=== PATIENT | female | born 1960 | race Caucasian/White ===

== ENCOUNTER 2018-06-23 09:19 | Emergency (ER) | payer MEDICARE ==
[~2018-06-23] VITALS: Ht 175.3 cm; Wt 117.3 kg
[~2018-06-23 09:19] MED LIST: ALPR-624 PO; AMPH12.52 PO; ARIP5TAB4 PO; ATOR40TA PO; CARI350T PO; CYCL-1 PO; ESCI10TA45 PO; FLUC150T5 PO; FURO-150 PO; HYDR-565 PO; IBUP-1984 PO; IBUP-1985 PO; OXYC5CAP PO; PER5325T PO; POTA20TA19 PO
[2018-06-23] MEDS ORDERED: ketorolac trometh inj. 60 MG/2 ML VIAL IM ONE (11:55)
[2018-06-23] MEDS ORDERED: dexamethasone 4mg tablet PO ONE (11:55)
[2018-06-23] MEDS ORDERED: gabapentin 400mg capsule PO ONE (11:55)
[2018-06-23] MEDS ORDERED: IBUP-1986 PO (12:19)
[2018-06-23 12:51] VITALS: BP 122/70
== END 2018-06-23 12:52 | disposition home or self-care (01) ==
LOC: ER 09:19
DX: M54.2 Cervicalgia (principal); I10 Essential (primary) hypertension; G89.29 Other chronic pain; E11.9 Type 2 diabetes mellitus without complications; Z90.49 Acquired absence of other specified parts of digestive tract; Z98.890 Other specified postprocedural states; Z79.899 Other long term (current) drug therapy
CPT/HCPCS: 96372; 99283; J1885; J7030; J8540

== ENCOUNTER 2018-08-30 01:26 | Emergency (ER) | payer MEDICARE, OTHER ==
[~2018-08-30] VITALS: Ht 175.3 cm; Wt 118.2 kg
[~2018-08-30 01:26] MED LIST changes: +HYDR-4353 PO; -HYDR-565 PO; +IBUP-1986 PO
[2018-08-30] MEDS ORDERED: morphine 4 MG/ML inj SYRINge IM ONE (02:40)
[2018-08-30] MEDS ORDERED: ketorolac trometh. 30mg/ml inj. IM ONE (02:40)
[2018-08-30] MEDS ORDERED: ondansetron/PF 4mg/2ml inj IM ONE (02:40)
[2018-08-30 03:09] VITALS: BP 109/61
[2018-08-30] MEDS ORDERED: HYDR-4353 PO (04:31)
[2018-08-30] MEDS ORDERED: IBUP-1986 PO (04:31)
== END 2018-08-30 05:05 | disposition home or self-care (01) ==
LOC: ER 01:27
DX: S30.0XXA Contusion of lower back and pelvis, initial encounter (principal); E66.01 Morbid (severe) obesity due to excess calories; I10 Essential (primary) hypertension; E11.9 Type 2 diabetes mellitus without complications; G89.29 Other chronic pain; F17.200 Nicotine dependence, unspecified, uncomplicated; Z90.49 Acquired absence of other specified parts of digestive tract; Z98.890 Other specified postprocedural states; Z79.899 Other long term (current) drug therapy; W10.9XXA Fall (on) (from) unspecified stairs and steps, initial encounter; Y93.89 Activity, other specified; Y92.89 Other specified places as the place of occurrence of the external cause; Y99.9 Unspecified external cause status
CPT/HCPCS: 72100; 96372; 99284; J1885; J2270; J2405

== ENCOUNTER 2018-10-07 04:51 | Emergency (ER) | payer MEDICARE, OTHER ==
[~2018-10-07] VITALS: Ht 175.3 cm; Wt 118.1 kg
[2018-10-07] MEDS ORDERED: LORazepam 1 MG tablet PO ONE (05:05)
[2018-10-07 05:29] LABS: ALANINE AMINOTRANSFERASE 28 U/L (12-78); ALBUMIN 3.4 G/DL (3.4-5.0); ALBUMIN/GLOBULIN RATIO 0.9 (1.1-1.5); ALKALINE PHOSPHATASE 130 IU/L (46-116); ANION GAP 8 (8-16); ASPARTATE AMINO TRANSFERASE 17 U/L (10-37); BILIRUBIN,TOTAL 0.6 MG/DL (0.1-1.0); BLOOD UREA NITROGEN 11 MG/DL (7-18); BUN/CREATININE RATIO 12.5 (6.6-38.0); CALCIUM 9.3 MG/DL (8.5-10.1); CHLORIDE 102 MMOL/L (99-107); CREATININE 0.88 MG/DL (0.40-0.90); GLUCOSE 322 MG/DL (70-104); SODIUM 138 MMOL/L (135-145); TOTAL CARBON DIOXIDE 27.7 MMOL/L (24-32); eGFR 66 ML/MIN
[2018-10-07 05:36] LABS: POTASSIUM 4.2 MMOL/L (3.5-5.1)
[2018-10-07] MEDS ORDERED: METH4TAB81 PO (05:51)
[2018-10-07] MEDS ORDERED: CEPH500C5 PO (05:51)
[2018-10-07] MEDS ORDERED: SULF1TAB49 PO (05:51)
[2018-10-07] MEDS ORDERED: HYDR50TA65 PO (05:51)
[2018-10-07 05:55] LABS: BASOPHILS # (AUTO) 0.1 X10'3 (0-0.2); EOSINOPHILS # (AUTO) 0.1 X10'3 (0-0.9); EOSINOPHILS % (AUTO) 0.6 % (0-6); HEMATOCRIT 46.9 % (35.0-45.0); HEMOGLOBIN 15.3 g/dl (12.0-16.0); LYMPHOCYTES # (AUTO) 1.5 X10'3 (1.1-4.8); LYMPHOCYTES % (AUTO) 13.6 % (21-51); MEAN CORPUSCULAR HEMOGLOBIN 27.6 PG (27.0-31.0); MEAN CORPUSCULAR HGB CONC 32.7 % (33.0-36.5); MEAN CORPUSCULAR VOLUME 84.3 FL (78-98); MEAN PLATELET VOLUME 8.1 FL (7.4-10.4); MONOCYTES % (AUTO) 9.3 % (2-12); NEUTROPHILS # (AUTO) 8.3 X10'3 (1.8-7.7); NEUTROPHILS % (AUTO) 75.5 % (42-75); PLATELET COUNT 243 X10'3 (140-440); RED BLOOD COUNT 5.56 X10'6 (4.20-5.60); RED CELL DISTRIBUTION WIDTH 13.9 % (11.5-14.5)
[2018-10-07 06:07] VITALS: BP 134/54
== END 2018-10-07 06:11 | disposition home or self-care (01) ==
LOC: ER 04:52
DX: F41.9 Anxiety disorder, unspecified (principal); L40.8 Other psoriasis; L03.116 Cellulitis of left lower limb; L03.115 Cellulitis of right lower limb; I10 Essential (primary) hypertension; E11.9 Type 2 diabetes mellitus without complications; G89.29 Other chronic pain; F17.200 Nicotine dependence, unspecified, uncomplicated; Z90.49 Acquired absence of other specified parts of digestive tract; Z98.890 Other specified postprocedural states; Z79.899 Other long term (current) drug therapy
CPT/HCPCS: 36415; 71045; 80053; 84484; 85025; 93005; 99284

== ENCOUNTER 2018-12-20 17:18 | Emergency (ER) | payer MEDICARE, OTHER ==
[~2018-12-20] VITALS: Ht 175.3 cm; Wt 119.5 kg
[~2018-12-20 17:18] MED LIST changes: +CEPH500C5 PO; +HYDR50TA65 PO; +METH4TAB81 PO
[2018-12-20 17:25] VITALS: BP 118/90
[2018-12-20] MEDS ORDERED: cephalexin 500mg capsule PO ONE (19:25)
[2018-12-20] MEDS ORDERED: CEPH250T PO (19:25)
[2018-12-20] MEDS ORDERED: silver sulfadiazine cream 50gm TP SCH (19:38)
[2018-12-21] MEDS ORDERED: silver sulfadiazine cream 400gm jar TP SCH (08:00)
== END 2018-12-20 19:50 | disposition home or self-care (01) ==
LOC: ER 17:18
DX: T23.232A Burn of second degree of multiple left fingers (nail), not including thumb, initial encounter (principal); T31.0 Burns involving less than 10% of body surface; L03.012 Cellulitis of left finger; I10 Essential (primary) hypertension; G89.29 Other chronic pain; F15.90 Other stimulant use, unspecified, uncomplicated; Z90.49 Acquired absence of other specified parts of digestive tract; Z98.890 Other specified postprocedural states; Z79.2 Long term (current) use of antibiotics; Z79.899 Other long term (current) drug therapy; X10.2XXA Contact with fats and cooking oils, initial encounter; Y93.G3 Activity, cooking and baking; Y92.89 Other specified places as the place of occurrence of the external cause; Y99.8 Other external cause status
CPT/HCPCS: 16020; 93005; 99284

== ENCOUNTER 2019-03-03 20:35 | Emergency (ER) | payer MEDICARE, MEDICAID ==
[~2019-03-03] VITALS: Ht 160 cm; Wt 120.0 kg
[~2019-03-03 20:35] MED LIST changes: +ACET-2119 PO
[2019-03-03] MEDS ORDERED: HYDROcodone/acetaminophen 5mg/325mg tablet PO ONE (21:50)
[2019-03-03] MEDS ORDERED: ketorolac tromethamine 15mg/ml inj. IM ONE (21:50)
[2019-03-03 23:41] VITALS: BP 160/84
[2019-03-04] MEDS ORDERED: HYDR-4384 PO (00:11)
[2019-03-04] MEDS ORDERED: HYDROcodone/acetaminophen 5mg/325mg tablet PO ONE (00:20)
== END 2019-03-04 00:33 | disposition home or self-care (01) ==
LOC: ER 20:36
DX: S22.32XA Fracture of one rib, left side, initial encounter for closed fracture (principal); S27.1XXA Traumatic hemothorax, initial encounter; I10 Essential (primary) hypertension; G89.29 Other chronic pain; F15.90 Other stimulant use, unspecified, uncomplicated; Z90.49 Acquired absence of other specified parts of digestive tract; Z98.890 Other specified postprocedural states; Z79.899 Other long term (current) drug therapy; W18.49XA Other slipping, tripping and stumbling without falling, initial encounter; Y93.89 Activity, other specified; Y92.89 Other specified places as the place of occurrence of the external cause; Y99.9 Unspecified external cause status
CPT/HCPCS: 71250; 96372; 99284; J1885

== ENCOUNTER 2019-03-08 02:40 | Observation (INO) | payer MEDICARE, MEDICAID ==
[~2019-03-08] VITALS: Ht 175.3 cm; Wt 118.2 kg
[~2019-03-08 02:40] MED LIST changes: +HYDR-4384 PO
[2019-03-08] MEDS ORDERED: acetaminophen 325mg tablet PO ONE ×2 (03:05)
[2019-03-08] MEDS ORDERED: HYDROmorphone 1 mg/ml syringe IM ONE (03:05)
[2019-03-08] MEDS ORDERED: LIDOcaine 5% patch TP ONE (03:05)
[2019-03-08] MEDS ORDERED: ondansetron 4mg rapidly disintigrating tab PO ONE (03:05)
--- NOTE | 2019-03-08 04:00 | NUR ---
PT UPDATED ON PLAN OF CARE. SHE CONSENTS TO ADMISSION. IV WILL BE STARTED AND LABS DRAWN.
[2019-03-08] MEDS ORDERED: METH750T3 PO (04:30)
[2019-03-08] MEDS ORDERED: ALBU8HFA PO (04:31)
[2019-03-08] MEDS ORDERED: HYDR-3686 PO (04:32)
[2019-03-08] MEDS ORDERED: CYCL-1 PO (04:32)
[2019-03-08 04:35] LABS: BASOPHILS # (AUTO) 0.1 X10'3 (0-0.2); BASOPHILS % (AUTO) 0.7 % (0-1); EOSINOPHILS # (AUTO) 0.2 X10'3 (0-0.9); EOSINOPHILS % (AUTO) 2.3 % (0-6); HEMATOCRIT 39.3 % (35.0-45.0); HEMOGLOBIN 13.1 g/dl (12.0-16.0); LYMPHOCYTES # (AUTO) 1.6 X10'3 (1.1-4.8); LYMPHOCYTES % (AUTO) 19.2 % (21-51); MEAN CORPUSCULAR HEMOGLOBIN 27.5 PG (27.0-31.0); MEAN CORPUSCULAR HGB CONC 33.2 g/dL (33.0-36.5); MEAN CORPUSCULAR VOLUME 82.8 FL (78-98); MEAN PLATELET VOLUME 7.6 FL (7.4-10.4); MONOCYTES # (AUTO) 0.7 X10'3 (0-0.9); MONOCYTES % (AUTO) 8.9 % (2-12); NEUTROPHILS # (AUTO) 5.6 X10'3 (1.8-7.7); NEUTROPHILS % (AUTO) 68.9 % (42-75); PLATELET COUNT 235 X10'3 (140-440); RED BLOOD COUNT 4.74 X10'6 (4.20-5.60); RED CELL DISTRIBUTION WIDTH 14.2 % (11.5-14.5); WHITE BLOOD COUNT 8.1 X10'3 (4.5-11.0)
[2019-03-08 04:37] LABS: ALANINE AMINOTRANSFERASE 24 U/L (12-78); ALBUMIN/GLOBULIN RATIO 0.9 (1.1-1.5); ALKALINE PHOSPHATASE 140 IU/L (46-116); ANION GAP 5 (8-16); ASPARTATE AMINO TRANSFERASE 15 U/L (10-37); BILIRUBIN,TOTAL 0.2 MG/DL (0.1-1.0); BLOOD UREA NITROGEN 10 MG/DL (7-18); CALCIUM 8.8 MG/DL (8.5-10.1); CHLORIDE 106 MMOL/L (99-107); CREATININE 0.77 MG/DL (0.40-0.90); GLUCOSE 166 MG/DL (70-104); SODIUM 141 MMOL/L (135-145); TOTAL CARBON DIOXIDE 30.3 MMOL/L (24-32); TOTAL PROTEIN 6.4 G/DL (6.4-8.2); eGFR 77 ML/MIN
[2019-03-08 04:42] LABS: POTASSIUM 3.9 MMOL/L (3.5-5.1)
[2019-03-08 04:44] LABS: INR 1.1 INR
[2019-03-08] MEDS ORDERED: morphine 2 MG/ML inj. syringe IV PRN (05:00)
[2019-03-08] MEDS ORDERED: HYDROcodone/acetaminophen 5mg/325mg tablet PO PRN (05:00)
[2019-03-08] MEDS ORDERED: magnesium 2GM in 50ml NS 50 ML IV PRN (05:00)
[2019-03-08] MEDS ORDERED: magnesium Cl slow-release 64mg tablet PO PRN (05:00)
[2019-03-08] MEDS ORDERED: potassium Cl 20 mEq SR tablet PO PRN ×2 (05:00)
[2019-03-08] MEDS ORDERED: acetaminophen 325mg tablet PO PRN ×2 (05:00)
[2019-03-08] MEDS ORDERED: normal saline 1000ml 1,000 ML IV SCH (05:00)
[2019-03-08] MEDS ORDERED: ondansetron/PF 4mg/2ml inj IV PRN (05:00)
[2019-03-08] MEDS ORDERED: potassium Cl 40MEQ/NS 500ml 500 ML IV PRN ×2 (05:00)
[2019-03-08] MEDS ORDERED: magnesium 4gm in 100ml NS 100 ML IV PRN (05:00)
--- NOTE | 2019-03-08 06:08 | NUR ---
PT HAS BEEN RESTING. NO DISTRESS NOTED. WILL CONTINUE TO MONITOR.
[2019-03-08] MEDS ORDERED: cyclobenzaprine 10mg tablet PO PRN (07:15)
[2019-03-08] MEDS ORDERED: albuterol 2.5 MG/3 ML nebule NEB PRN (07:25)
[2019-03-08] MEDS: AMPHET PO SCH (08:00)
[2019-03-08] MEDS ORDERED: METHOCARBAMOL PO SCH (08:00)
[2019-03-08] MEDS: AMPHET ASP PO SCH (08:00)
[2019-03-08] MEDS: D AMPHET PO SCH (08:00)
[2019-03-08] MEDS: docusate sod 100mg capsule PO SCH ×2 (08:18→20:22)
[2019-03-08] MEDS: ibuprofen 200mg tablet PO SCH ×2 (08:18→16:00)
[2019-03-08] MEDS: ALPRAZolam 0.5mg tablet PO SCH ×3 (08:19→20:22)
[2019-03-08] MEDS: K and/or MAG REPLACEMENT MC SCH (08:24)
[2019-03-08 08:34] VITALS: BP 144/79
[2019-03-08 10:00] VITALS: BP 154/89
[2019-03-08] MEDS ORDERED: oxyCODONE IR 5mg (immed. release) tablet PO PRN (10:20)
--- NOTE | 2019-03-08 15:06 | NUR ---
PT DROWSY BUT AROUSABLE AFTER GIVING THE OXY IR, STATED "SHE HASN'T SLEPT SINCE THIS HAS HAPPENED" VISITORS AT BEDSIDE.
[2019-03-08 18:00] VITALS: BP 151/71
[2019-03-08] MEDS ORDERED: famotidine 20mg tablet PO SCH (21:00)
[2019-03-08 22:00] VITALS: BP 145/61
[2019-03-08] MEDS: oxyCODONE IR 5mg (immed. release) tablet PO PRN (22:10)
[2019-03-09] MEDS: oxyCODONE IR 5mg (immed. release) tablet PO PRN (04:41)
[2019-03-09 06:00] VITALS: BP 150/82
[2019-03-09 06:28] LABS: BASOPHILS # (AUTO) 0.1 X10'3 (0-0.2); EOSINOPHILS # (AUTO) 0.2 X10'3 (0-0.9); HEMATOCRIT 40.8 % (35.0-45.0); HEMOGLOBIN 13.6 g/dl (12.0-16.0); LYMPHOCYTES # (AUTO) 1.5 X10'3 (1.1-4.8); LYMPHOCYTES % (AUTO) 15.7 % (21-51); MEAN CORPUSCULAR HEMOGLOBIN 27.5 PG (27.0-31.0); MEAN CORPUSCULAR HGB CONC 33.2 g/dL (33.0-36.5); MEAN CORPUSCULAR VOLUME 82.9 FL (78-98); MEAN PLATELET VOLUME 7.4 FL (7.4-10.4); MONOCYTES # (AUTO) 0.7 X10'3 (0-0.9); MONOCYTES % (AUTO) 7.7 % (2-12); NEUTROPHILS # (AUTO) 6.9 X10'3 (1.8-7.7); NEUTROPHILS % (AUTO) 73.6 % (42-75); PLATELET COUNT 238 X10'3 (140-440); RED BLOOD COUNT 4.93 X10'6 (4.20-5.60); RED CELL DISTRIBUTION WIDTH 14.1 % (11.5-14.5); WHITE BLOOD COUNT 9.4 X10'3 (4.5-11.0)
[2019-03-09 06:36] LABS: ALBUMIN 2.9 G/DL (3.4-5.0); ANION GAP 3 (8-16); BLOOD UREA NITROGEN 9 MG/DL (7-18); BUN/CREATININE RATIO 13.6 (6.6-38.0); CALCIUM 8.4 MG/DL (8.5-10.1); CHLORIDE 105 MMOL/L (99-107); CREATININE 0.66 MG/DL (0.40-0.90); GLUCOSE 174 MG/DL (70-104); MAGNESIUM 1.8 MG/DL (1.5-2.4); POTASSIUM 3.8 MMOL/L (3.5-5.1); SODIUM 138 MMOL/L (135-145); TOTAL CARBON DIOXIDE 29.8 MMOL/L (24-32); eGFR > 90 ML/MIN
--- NOTE | 2019-03-09 06:42 | NUR ---
Problems reprioritized. Patient report given, questions answered & plan of care reviewed with jose angel Zhong.
[2019-03-09] MEDS: K and/or MAG REPLACEMENT MC SCH (07:33)
[2019-03-09] MEDS: AMPHET ASP PO SCH (08:00)
[2019-03-09] MEDS: D AMPHET PO SCH (08:00)
[2019-03-09] MEDS: AMPHET PO SCH (08:00)
[2019-03-09] MEDS: ALPRAZolam 0.5mg tablet PO SCH ×2 (08:28→14:34)
[2019-03-09] MEDS: ibuprofen 200mg tablet PO SCH ×3 (08:28→16:48)
[2019-03-09] MEDS: docusate sod 100mg capsule PO SCH (08:28)
[2019-03-09] MEDS ORDERED: OXYC-658 PO (16:14)
--- NOTE | 2019-03-09 17:30 | NUR ---
Pt went AMA/Pt spouse supported pt going AMA. Pt educated on risks going AMA. Pt unable to ambulate independently, bilateral weakness upper & lower extremities. pt drowsy most of the day, unstable using walker. Falling asleep with cups or bottles of soda/dropping. Able to arouse by name. Pt shouting explenetives , insisting on leaving, disruptive to pts in other rooms. pt did not sign AMA documentation. made aware.
== END 2019-03-09 17:25 | disposition left against medical advice (07) ==
LOC: ER 02:42 → ORTHO 4S 07:35
PROVIDERS: ADMIT Internal Medicine; ATTEND Family Medicine
DX: S22.42XA Multiple fractures of ribs, left side, initial encounter for closed fracture (principal); S27.1XXA Traumatic hemothorax, initial encounter; J98.11 Atelectasis; L40.9 Psoriasis, unspecified; F31.9 Bipolar disorder, unspecified; I10 Essential (primary) hypertension; G89.29 Other chronic pain; W18.30XA Fall on same level, unspecified, initial encounter; Y93.89 Activity, other specified; Y99.8 Other external cause status; Y92.89 Other specified places as the place of occurrence of the external cause; Z90.49 Acquired absence of other specified parts of digestive tract
CPT/HCPCS: 36415; 71045; 71046; 80048; 80053; 83735; 85025; 85610; 87070; 94760; 96372; 97116; 97161; 97530; G0378; J1170; J7030

== ENCOUNTER 2019-08-28 08:07 | Inpatient (IN) | payer MEDICAID, MEDICARE ==
[~2019-08-28] VITALS: Ht 175.3 cm; Wt 112.4 kg
[2019-08-28] VITALS (10 sets, daily range): BP systolic 119–151; BP diastolic 49–69
[~2019-08-28 08:07] MED LIST changes: -ACET-2119 PO; +ALBU8HFA PO; -AMPH12.52 PO; -ARIP5TAB4 PO; -ATOR40TA PO; -CARI350T PO; -CEPH500C5 PO; -ESCI10TA45 PO; -FLUC150T5 PO; -FURO-150 PO; +HYDR-3686 PO; -HYDR-4353 PO; -HYDR-4384 PO; -HYDR50TA65 PO; -IBUP-1984 PO; -IBUP-1986 PO; -METH4TAB81 PO; +METH750T3 PO; +OXYC-658 PO; -OXYC5CAP PO; -PER5325T PO; -POTA20TA19 PO
[2019-08-28] MEDS ORDERED: normal saline 1000ML IV soln IV ONE (08:45)
--- NOTE | 2019-08-28 08:50 | NUR ---
ATTEMPTED TO START PIV UNSUCCESSFUL. PATIENT MAY NEED US GUIDED IV OR PICC LINE. ER MD NOTIFIED OF DIFFICULTY STARTING IV LINE.
[2019-08-28] MEDS ORDERED: heparin 25,000 UNIT/250ml bag 250 ML IV SCH (08:58)
[2019-08-28] MEDS ORDERED: heparin 10,000 units/1 ML INJ IV ONE ×2 (09:00→09:05)
[2019-08-28] MEDS ORDERED: heparin 10,000 units/1 ML INJ IV PRN (09:00)
[2019-08-28 09:16] LABS: BASOPHILS # (AUTO) 0.1 X10'3 (0-0.2); BASOPHILS % (AUTO) 0.9 % (0-1); EOSINOPHILS # (AUTO) 0.1 X10'3 (0-0.9); EOSINOPHILS % (AUTO) 1.1 % (0-6); HEMATOCRIT 46.9 % (35.0-45.0); HEMOGLOBIN 15.4 g/dl (12.0-16.0); LYMPHOCYTES # (AUTO) 1.6 X10'3 (1.1-4.8); LYMPHOCYTES % (AUTO) 20.5 % (21-51); MEAN CORPUSCULAR HEMOGLOBIN 27.8 PG (27.0-31.0); MEAN CORPUSCULAR HGB CONC 32.9 g/dL (33.0-36.5); MEAN CORPUSCULAR VOLUME 84.5 FL (78-98); MEAN PLATELET VOLUME 7.8 FL (7.4-10.4); MONOCYTES # (AUTO) 0.5 X10'3 (0-0.9); MONOCYTES % (AUTO) 6.5 % (2-12); NEUTROPHILS # (AUTO) 5.5 X10'3 (1.8-7.7); PLATELET COUNT 255 X10'3 (140-440); RED BLOOD COUNT 5.55 X10'6 (4.20-5.60); RED CELL DISTRIBUTION WIDTH 13.9 % (11.5-14.5); WHITE BLOOD COUNT 7.8 X10'3 (4.5-11.0)
[2019-08-28 09:28] LABS: PARTIAL THROMBOPLASTIN TIME 25 SECONDS (22-32)
[2019-08-28 09:32] LABS: ALANINE AMINOTRANSFERASE 66 U/L (12-78); ALBUMIN 4.1 G/DL (3.4-5.0); ALKALINE PHOSPHATASE 150 IU/L (46-116); ANION GAP 5 (8-16); ASPARTATE AMINO TRANSFERASE 49 U/L (10-37); BILIRUBIN,TOTAL 0.8 MG/DL (0.1-1.0); BLOOD UREA NITROGEN 13 MG/DL (7-18); BUN/CREATININE RATIO 16.3 (6.6-38.0); CALCIUM 9.4 MG/DL (8.5-10.1); CHLORIDE 101 MMOL/L (99-107); GLUCOSE 229 MG/DL (70-104); POTASSIUM 4.2 MMOL/L (3.5-5.1); SODIUM 139 MMOL/L (135-145); TOTAL CARBON DIOXIDE 32.6 MMOL/L (24-32); TOTAL PROTEIN 8.4 G/DL (6.4-8.2); eGFR 73 ML/MIN
[2019-08-28 09:41] LABS: MAGNESIUM 1.9 MG/DL (1.5-2.4); TROPONIN I < 0.04 NG/ML (0.0-0.05)
[2019-08-28] MEDS ORDERED: CefTRIAXone 2gm/D5W 50ml 50 ML IV ONE (09:55)
--- NOTE | 2019-08-28 10:08 | NUR ---
PICC RN IN ROOM TO START IV, AWARE OF NO ACCESS
--- NOTE | 2019-08-28 10:53 | NUR ---
MD BONILLA IN ROOM TO ASSESS ALOC: PER MD PATIENT WAS TALKING TO HIM EARLIER PATIENT DID NOT MOVE OR FLICH TO DEEP NAILBED PRESSURE PATIENT ONLY MOVED TO DEEP STERNAL RUB, EYES BRIEFLY FLUTTERED OPEN, I HELD EYES OPEN NO STARTLE REFLEX NOTED PICC RN UNABLE TO PLACE LINE
--- NOTE | 2019-08-28 10:58 | NUR ---
DR WALL AWARE NO IV ACCESS AND NO MEDS GIVEN
[2019-08-28] MEDS ORDERED: naloxone 2mg/2ml inj IV STA (11:16)
[2019-08-28] MEDS ORDERED: rocuronium br inj. 100 MG in normal saline 100ml IV soln 90 ML IV PRN ×2 (11:35→11:55)
[2019-08-28] MEDS ORDERED: etomidate 2mg/ml inj. IV ONE (11:40)
[2019-08-28] MEDS ORDERED: rocuronium 10mg/ml inj IV ONE ×2 (11:45→12:00)
[2019-08-28] MEDS ORDERED: propofol 1000mg/100ml bottle 100 ML IV ONE (11:54)
[2019-08-28] MEDS ORDERED: etomidate 2mg/ml inj. ONE (12:00)
[2019-08-28] MEDS ORDERED: sod chloride 0.9% 10ml flush syringe IV ONE (12:00)
--- NOTE | 2019-08-28 12:07 | NUR ---
2 LITERS BOLUS INFUSING TO BRIAN THUMB. PROPOFOLOL 15MCG/KG/MIN RUNNING
[2019-08-28 12:11] LABS: URINE HCG NEGATIVE (NEG)
[2019-08-28] MEDS: propofol 1000mg/100ml bottle 100 ML IV SCH ×3 (12:11→22:30)
[2019-08-28 12:13] LABS: CLARITY,URINE CLEAR (Clear); COLOR,URINE YELLOW (Yellow); GLUCOSE, URINE 500 mg/dl (Neg); KETONES,URINE NEGATIVE (Neg); LEUKOCYTE ESTERASE ,URINE NEGATIVE (Neg); NITRITES, URINE NEGATIVE (Neg); OCCULT BLOOD,URINE NEGATIVE (Neg); PROTEIN,URINE NEGATIVE (Neg); UA COLLECTION TYPE FOLEY CATH; UROBILINOGEN,URINE 0.2 E.U/dL (0.2-1.0)
--- NOTE | 2019-08-28 12:18 | NUR ---
PATIENT TO CT SCAN, OETT TUBE AT TEETH 25 CM, PROPOFOL AT 15MCG/KG/MIN TO LEFT THUMB IV: DR WALL AWARE IT IS RUNNING THRU A 22 GAUGE PIV IN THE THUMB. SR, LUNGS CL ON 50 % FIO2, SR, FC TO GRAVITY PATIENT TO HEAD CT ON [place] ON MONITOR WITH RESPIRATORY THERAPY, MYSELF AND WEB CONTENT PRODUCER
[2019-08-28] MEDS ORDERED: acetaminophen 325mg tablet PO PRN ×2 (12:20)
[2019-08-28] MEDS ORDERED: ipratropium/albuterol 3ml nebule NEB PRN (12:20)
[2019-08-28] MEDS ORDERED: metoclopramide 5 mg/ml inj IV PRN (12:20)
[2019-08-28] MEDS ORDERED: potassium Cl 20 mEq SR tablet PO PRN (12:20)
[2019-08-28] MEDS ORDERED: magnesium hydroxide 30ml (MOM) UD suspension PO PRN (12:20)
[2019-08-28] MEDS ORDERED: morphine 2 MG/ML inj. syringe IV PRN (12:20)
[2019-08-28] MEDS ORDERED: morphine 4 MG/ML inj SYRINge IV PRN (12:20)
[2019-08-28] MEDS ORDERED: ondansetron/PF 4mg/2ml inj IV PRN (12:20)
[2019-08-28 13:15] LABS: ABG BASE EXCESS 1.1 mmol/L (-2.0-3.0); ABG HCO3 29.1 mmol/L (22.0-26.0); ABG OXYGEN SATURATION 98.3 % (95-98); ABG PCO2 (T) 61.1 mmHg (35.0-45.0); ABG PH (T) 7.296 (7.350-7.450); ABG PO2 (T) 139.3 mmHg (83-108); ALLEN'S TEST Positive; FCOHb 3.9 % (0.5-1.5); FMetHb 0.2 % (0.3-1.12); FO2Hb 94.3 % (94-100); MINUTE VOLUME 7 L/min; PEEP 5 cm H2O; RESPIRATORY RATE 12 b/min; TIDAL VOLUME 500 mL; TOTAL HEMOGLOBIN 14.6 G/dl (12.0-16.0)
[2019-08-28 13:34] LABS: URINE AMPHETAMINE SCREEN POSITIVE (Neg); URINE BARBITUATE SCREEN NEGATIVE (Neg); URINE BENZODIAZEPINES SCREEN NEGATIVE (Neg); URINE CANNABINOID SCREEN NEGATIVE (Neg); URINE COCAINE SCREEN NEGATIVE (Neg); URINE METHADONE SCREEN NEGATIVE (Neg); URINE OPIATE SCREEN POSITIVE (Neg); URINE PHENCYCLIDINE SCREEN NEGATIVE (Neg)
--- NOTE | 2019-08-28 14:07 | NUR ---
again asl dr guillermo to place a central line; dr guillermo is aaware that the only iv access for this patient is a 22 gauge piv in each thumb. dr guillermo is aware that propofol is running thru piv in thumb. dr guillermo wants to do LP now, not CL
--- NOTE | 2019-08-28 14:32 | NUR ---
DR BONILLA UNABLE TO PALPATE SPINE: NO LUMBAR PUNCTURE PERFORMED. DR WALL WOULD LIKE ICU TO PLACE CENTRAL LINE
--- NOTE | 2019-08-28 14:45 | NUR ---
CALLED RESPIRATORY BILLY TO COME TO ASSIST PATIENT TO CT SCAN AND UP TO ICU: SHE IS UNABLE TO COME, RESPIRATORY PAGED
--- NOTE | 2019-08-28 14:59 | NUR ---
DR WALL ASKED IF HE WANTED A NON CONTRAST CT. DR WALL WOULD LIKE A NON CONTRAST CHEST CT PER RADIOLOGIST REQUEST. ABOUT 1300 DR WALL DISCUSSED OBTAINING A CTA DUE TO CONCERNS OVER A WIDENING MEDIASTINUM
--- NOTE | 2019-08-28 15:01 | NUR ---
PHONE REPORT TO MARINO AGUDELO ICU. PATIENT GOING ON [facility]UR[employer] AIR, WITH RESPIRATORY THERAPY AND MYSELF ON MONITOR TO ROOM 2008A
--- NOTE | 2019-08-28 15:04 | NUR ---
RN MARINO AWARE NO MEDICATION RECONCILIATION DONE OR BELONGINGS LIST
--- NOTE | 2019-08-28 15:46 | NUR ---
ASKED DR STEARNS IF HE WAS GOING TO START A CENTRAL LINE AND HE SAID "NO". DR STEARNS IS AWARE THAT PATIENT ONLY HAS 22 GAUGE IV IN EACH THUMB.
--- NOTE | 2019-08-28 15:48 | NUR ---
[place] RN AND RESPIRATORY THERAPY TO CT SCAN OF CHEST NON CONTRAST AND THEN TO ICU 2007. PATIENT WITH OG TUBE CLAMPED, OEET AT 25 CM: MARINO, HYDRAMATIC MECHANIC IS AWARE THAT OETT NEEDS TO BE PULLED BACK. FC TO GRAVITY. RIGHT AND LEFT THUMB PIVS WITH PROPOFOL AT 25 MCG/KG/MIN.
[2019-08-28] MEDS: K, MAG and/or Phos replacement - Verify level? MC SCH (18:10)
[2019-08-28] MEDS: normal saline 1000ml 1,000 ML IV SCH (18:12)
[2019-08-28] MEDS ORDERED: glucagon, human recombinant 1mg kit SUBCUT PRN (20:05)
[2019-08-28] MEDS ORDERED: dextrose 50%-water 50ml dispensing syringe IV PRN ×2 (20:05)
[2019-08-28] MEDS ORDERED: dextrose ORAL solution 15 GM/59 ML bottle PO PRN ×2 (20:05)
[2019-08-28] MEDS: insulin Lispro (HumaLOG) vial - multi-dose SQ SCH (22:34)
[2019-08-28] MEDS: insulin glargine (Lantus) pen - multi-dose SQ SCH (22:35)
[2019-08-29] VITALS (24 sets, daily range): BP systolic 99–146; BP diastolic 39–71
[2019-08-29] MEDS: propofol 1000mg/100ml bottle 100 ML IV SCH ×2 (00:55→05:00)
[2019-08-29] MEDS: normal saline 1000ml 1,000 ML IV SCH ×2 (01:39→04:59)
[2019-08-29] MEDS: insulin Lispro (HumaLOG) vial - multi-dose SQ SCH ×3 (02:51→15:04)
[2019-08-29 03:45] LABS: ABG BASE EXCESS 2.2 mmol/L (-2.0-3.0); ABG HCO3 26.8 mmol/L (22.0-26.0); ABG OXYGEN SATURATION 95.9 % (95-98); ABG PCO2 (T) 41.9 mmHg (35.0-45.0); ABG PH (T) 7.425 (7.350-7.450); ABG PO2 (T) 75.9 mmHg (83-108); FMetHb 0.1 % (0.3-1.12); FO2Hb 94.8 % (94-100); MINUTE VOLUME 8 L/min; PATIENT TEMPERATURE 37.1; PEEP 5 cm H2O; RESPIRATORY RATE 16 b/min; RESPIRATORY RATE (OBSERVED) 17 b/min; TIDAL VOLUME 500 mL; TOTAL HEMOGLOBIN 14.6 G/dl (12.0-16.0)
[2019-08-29 05:10] LABS: BASOPHILS % (AUTO) 0.5 % (0-1); EOSINOPHILS # (AUTO) 0.1 X10'3 (0-0.9); EOSINOPHILS % (AUTO) 1.2 % (0-6); HEMATOCRIT 45.1 % (35.0-45.0); LYMPHOCYTES # (AUTO) 1.6 X10'3 (1.1-4.8); LYMPHOCYTES % (AUTO) 19.9 % (21-51); MEAN CORPUSCULAR HGB CONC 33.2 g/dL (33.0-36.5); MEAN CORPUSCULAR VOLUME 84.5 FL (78-98); MEAN PLATELET VOLUME 7.9 FL (7.4-10.4); MONOCYTES # (AUTO) 0.7 X10'3 (0-0.9); MONOCYTES % (AUTO) 8.4 % (2-12); NEUTROPHILS # (AUTO) 5.8 X10'3 (1.8-7.7); PLATELET COUNT 220 X10'3 (140-440); RED BLOOD COUNT 5.34 X10'6 (4.20-5.60); RED CELL DISTRIBUTION WIDTH 13.8 % (11.5-14.5); WHITE BLOOD COUNT 8.2 X10'3 (4.5-11.0)
[2019-08-29 05:22] LABS: PARTIAL THROMBOPLASTIN TIME 24 SECONDS (22-32)
--- NOTE | 2019-08-29 06:28 | NUR ---
Problems reprioritized. Patient report given, questions answered & plan of care reviewed with Belkys AGUDELO.
[2019-08-29 06:53] LABS: ALANINE AMINOTRANSFERASE 66 U/L (12-78); ALBUMIN 3.1 G/DL (3.4-5.0); ANION GAP 8 (8-16); BILIRUBIN,TOTAL 0.6 MG/DL (0.1-1.0); BLOOD UREA NITROGEN 9 MG/DL (7-18); BUN/CREATININE RATIO 12.2 (6.6-38.0); CALCIUM 8.5 MG/DL (8.5-10.1); CHLORIDE 107 MMOL/L (99-107); CREATININE 0.74 MG/DL (0.40-0.90); GLUCOSE 167 MG/DL (70-104); MAGNESIUM 1.8 MG/DL (1.5-2.4); PHOSPHORUS 2.1 MG/DL (2.3-4.5); POTASSIUM 3.6 MMOL/L (3.5-5.1); SODIUM 142 MMOL/L (135-145); TOTAL CARBON DIOXIDE 26.9 MMOL/L (24-32); TOTAL PROTEIN 6.3 G/DL (6.4-8.2); eGFR 80 ML/MIN
[2019-08-29 07:08] LABS: ALKALINE PHOSPHATASE 124 IU/L (46-116); ASPARTATE AMINO TRANSFERASE 43 U/L (10-37)
[2019-08-29] MEDS ORDERED: FENTANYL-0.9 % NACL/PF 100 ML IV PRN (07:25)
[2019-08-29] MEDS: pantoprazole 40 MG vial IV SCH (07:42)
[2019-08-29] MEDS: K, MAG and/or Phos replacement - Verify level? MC SCH (08:03)
[2019-08-29] MEDS: enoxaparin 40mg/0.4ml syringe SUBCUT SCH (09:09)
[2019-08-29 10:02] LABS: GASTRIC OCCULT BLOOD POSITIVE (Neg)
--- NOTE | 2019-08-29 11:45 | NUR ---
Initial: Pt admit for progressive obtundation and respiratory failure. Per H&P pt with left tibial abscess. Per physical assessment wound is KIRBY and scabbed over. Wound care has been consulted, pending further skin assessment. Pt with hx illicit drug abuse and DM per H&P however no hx of DM listed in PMH and no A1c lab current or past visits. BG 146-229 this since admit, on glycemic protocol. Pt intubated with potential extubation today per MD notes. TF recommendations below for if prolonged intubation and to receive nutrition support. No documented LBM. Pt with hx IBS and documented with hypoactive bowel sounds per physical assessment, to receive routine Relistor with PRN Reglan and MoM. Will continue to follow closely. Recommendations: 1) If prolonged intubation and to receive TF, continuous TF using Vital High Protein with goal rate of 75 mL/hr 2) If above, Prealbumin q /; daily weights 3) Routine bowel care 4) Upon extubation advance diet to regular given no documented hx of DM; CHO controlled diet would be appropriate for BG control if pt continues with elevated BG Addendum: 08/29/19 at [address] Amended: Links added.
--- NOTE | 2019-08-29 17:28 | NUR ---
positive blood culture called in from lab. HAND EDGER Gricel notified of gram positive cocci clusters growing in aerobic tube of left arm blood culture. Urine culture also ordered per HAND EDGER Gricel.
[2019-08-29] MEDS: insulin glargine (Lantus) pen - multi-dose SQ SCH (21:07)
[2019-08-30] VITALS (19 sets, daily range): BP systolic 97–128; BP diastolic 37–67
[2019-08-30] MEDS: normal saline 1000ml 1,000 ML IV SCH ×2 (04:25→17:40)
[2019-08-30 05:48] LABS: BASOPHILS % (AUTO) 0.6 % (0-1); EOSINOPHILS # (AUTO) 0.1 X10'3 (0-0.9); EOSINOPHILS % (AUTO) 1.3 % (0-6); HEMATOCRIT 40.3 % (35.0-45.0); HEMOGLOBIN 13.3 g/dl (12.0-16.0); LYMPHOCYTES # (AUTO) 1.7 X10'3 (1.1-4.8); LYMPHOCYTES % (AUTO) 21.9 % (21-51); MEAN CORPUSCULAR HEMOGLOBIN 28.1 PG (27.0-31.0); MEAN CORPUSCULAR HGB CONC 33.1 g/dL (33.0-36.5); MEAN CORPUSCULAR VOLUME 84.8 FL (78-98); MEAN PLATELET VOLUME 7.9 FL (7.4-10.4); MONOCYTES # (AUTO) 0.6 X10'3 (0-0.9); MONOCYTES % (AUTO) 8.2 % (2-12); NEUTROPHILS # (AUTO) 5.2 X10'3 (1.8-7.7); PLATELET COUNT 212 X10'3 (140-440); RED BLOOD COUNT 4.75 X10'6 (4.20-5.60); RED CELL DISTRIBUTION WIDTH 13.6 % (11.5-14.5); WHITE BLOOD COUNT 7.6 X10'3 (4.5-11.0)
[2019-08-30 06:07] LABS: PARTIAL THROMBOPLASTIN TIME 26 SECONDS (22-32)
--- NOTE | 2019-08-30 06:30 | NUR ---
Patient in room CICU 2007. I have received report from MAGNUS Tillman and had the opportunity to ask questions and assume patient care.
[2019-08-30 06:39] LABS: ALANINE AMINOTRANSFERASE 76 U/L (12-78); ALBUMIN 2.7 G/DL (3.4-5.0); ALBUMIN/GLOBULIN RATIO 0.9 (1.1-1.5); ALKALINE PHOSPHATASE 125 IU/L (46-116); ANION GAP 5 (8-16); ASPARTATE AMINO TRANSFERASE 37 U/L (10-37); BILIRUBIN,TOTAL 0.7 MG/DL (0.1-1.0); BLOOD UREA NITROGEN 6 MG/DL (7-18); CALCIUM 8.5 MG/DL (8.5-10.1); CHLORIDE 109 MMOL/L (99-107); CREATININE 0.67 MG/DL (0.40-0.90); GLUCOSE 152 MG/DL (70-104); MAGNESIUM 1.8 MG/DL (1.5-2.4); PHOSPHORUS 2.7 MG/DL (2.3-4.5); POTASSIUM 3.3 MMOL/L (3.5-5.1); SODIUM 144 MMOL/L (135-145); TOTAL CARBON DIOXIDE 29.8 MMOL/L (24-32); TOTAL PROTEIN 5.8 G/DL (6.4-8.2); eGFR 90 ML/MIN
--- NOTE | 2019-08-30 06:49 | NUR ---
Problems reprioritized. Patient report given, questions answered & plan of care reviewed with Maria Del Rosario AGUDELO.
[2019-08-30] MEDS: K, MAG and/or Phos replacement - Verify level? MC SCH (08:00)
[2019-08-30] MEDS: enoxaparin 40mg/0.4ml syringe SUBCUT SCH (08:32)
[2019-08-30] MEDS: pantoprazole 40 MG vial IV SCH (08:32)
[2019-08-30] MEDS: insulin Lispro (HumaLOG) vial - multi-dose SQ SCH ×3 (09:39→19:41)
[2019-08-30] MEDS: potassium Cl 20 mEq SR tablet PO PRN ×3 (09:40→23:08)
--- NOTE | 2019-08-30 11:47 | NUR ---
During assessing this patient this morning, patient reported that she has not been to her primary care doctor in some time. She reports that she has not been taking any medications because of this. She also reported to me that she has recently been using "meth". Her came to visit her approx 1 hour ago. He brought another female with him by w/c. The patient had been alert and oriented with stable vitals but within 30 minutes of their arrival she is now obtunded. Her Blood pressure had decreased to 98/37 with a MAP of 57. I repeated the blood pressure and she is now more stable at 125/37 with a MAP of 66. Patient does respond when her is speaking to her. She is repeatedly asking him to take her home and she has asked me since this morning when she will be allowed to leave. She stated earlier that she didn't want to have to leave AMA but she would if she needed to. I educated her on the importance of being treated, as she is receiving IV antibiotics and that she was just extubated yesterday. I also educated her about her diabetes management. She stated that she will not be seeing her PCP and she needs a new PCP. Her stated to me that she is an every day smoker so she may need a nicotine patch. The patient state that she is better now and that she only had an allergic reaction to the bad drugs she used.
[2019-08-30] MEDS ORDERED: NO HOME MEDS (11:48)
--- NOTE | 2019-08-30 17:00 | NUR ---
Patient left the floor in wheel chair. Patient was able to transfer safely to the wheelchair. Patient still obtunded but vitals stable. Passed patient off to staff of surgical floor and performed accucheck for receiving nurseYue P. Addendum: 08/30/19 at 1747 by Maria Del Rosario Chacon RN All patient belongings went with the patient in plastic patient belonging bags. Patient had a cell phone with charging pack, clothing, eye glasses and upper denture along with shoes in another bag.
--- NOTE | 2019-08-30 17:00 | NUR ---
Gave report to Yue Blevins RN on Surgical. Answered all questions that she had regarding patient. Will help aide transport patient up to surgical floor.
--- NOTE | 2019-08-30 17:31 | NUR ---
Patient arrived to floor. VSS. c/o 08/06 pain but not requesting pain medication at this time.
[2019-08-30] MEDS ORDERED: cefepime 1GM in D5W 50mL 50 ML IV SCH (17:35)
--- NOTE | 2019-08-30 18:15 | NUR ---
Patient in room [facility] 348. I have received report from Yue AGUDELO and had the opportunity to ask questions and assume patient care.
--- NOTE | 2019-08-30 18:29 | NUR ---
Problems reprioritized. Patient report given, questions answered & plan of care reviewed with MAGNUS Marte.
[2019-08-30] MEDS: lactobacillus rhamnosus 10,000 MMU CELLS/CAPSULE PO SCH (20:00)
[2019-08-30] MEDS: insulin glargine (Lantus) pen - multi-dose SQ SCH (22:27)
[2019-08-31] VITALS: BP 118/65
[2019-08-31 05:30] LABS: BASOPHILS # (AUTO) 0.1 X10'3 (0-0.2); BASOPHILS % (AUTO) 1.1 % (0-1); EOSINOPHILS # (AUTO) 0.1 X10'3 (0-0.9); EOSINOPHILS % (AUTO) 1.8 % (0-6); HEMATOCRIT 40.8 % (35.0-45.0); HEMOGLOBIN 13.5 g/dl (12.0-16.0); LYMPHOCYTES # (AUTO) 1.6 X10'3 (1.1-4.8); LYMPHOCYTES % (AUTO) 19.7 % (21-51); MEAN CORPUSCULAR HEMOGLOBIN 27.9 PG (27.0-31.0); MEAN CORPUSCULAR VOLUME 84.5 FL (78-98); MEAN PLATELET VOLUME 7.9 FL (7.4-10.4); MONOCYTES # (AUTO) 0.6 X10'3 (0-0.9); MONOCYTES % (AUTO) 7.6 % (2-12); NEUTROPHILS # (AUTO) 5.5 X10'3 (1.8-7.7); NEUTROPHILS % (AUTO) 69.8 % (42-75); PLATELET COUNT 213 X10'3 (140-440); RED BLOOD COUNT 4.83 X10'6 (4.20-5.60); WHITE BLOOD COUNT 7.9 X10'3 (4.5-11.0)
[2019-08-31 05:34] LABS: PARTIAL THROMBOPLASTIN TIME 25 SECONDS (22-32)
[2019-08-31 05:44] LABS: HEMOGLOBIN A1C 8.6 % (4.5-6.2)
[2019-08-31 05:57] LABS: ALANINE AMINOTRANSFERASE 52 U/L (12-78); ALBUMIN 2.8 G/DL (3.4-5.0); ALKALINE PHOSPHATASE 116 IU/L (46-116); ANION GAP 6 (8-16); ASPARTATE AMINO TRANSFERASE 19 U/L (10-37); BILIRUBIN,TOTAL 0.6 MG/DL (0.1-1.0); BLOOD UREA NITROGEN 6 MG/DL (7-18); BUN/CREATININE RATIO 9.1 (6.6-38.0); CALCIUM 9.2 MG/DL (8.5-10.1); CHLORIDE 109 MMOL/L (99-107); CREATININE 0.66 MG/DL (0.40-0.90); GLUCOSE 155 MG/DL (70-104); PHOSPHORUS 2.9 MG/DL (2.3-4.5); POTASSIUM 3.8 MMOL/L (3.5-5.1); SODIUM 145 MMOL/L (135-145); TOTAL CARBON DIOXIDE 29.9 MMOL/L (24-32); eGFR > 90 ML/MIN
[2019-08-31 06:13] LABS: ALBUMIN/GLOBULIN RATIO 0.8 (1.1-1.5); TOTAL PROTEIN 6.3 G/DL (6.4-8.2)
--- NOTE | 2019-08-31 06:30 | NUR ---
Problems reprioritized. Patient report given, questions answered & plan of care reviewed with Raj AGUDELO.
--- NOTE | 2019-08-31 06:30 | NUR ---
Problems reprioritized. Patient report given, questions answered & plan of care reviewed with Raj AGUDELO.
--- NOTE | 2019-08-31 06:34 | NUR ---
Patient in room [facility] 348. I have received report from Rosanna AGUDELO and had the opportunity to ask questions and assume patient care.
[2019-08-31] MEDS: normal saline 1000ml 1,000 ML IV SCH (06:59)
[2019-08-31 07:00] VITALS: BP 105/48
[2019-08-31] MEDS: lactobacillus rhamnosus 10,000 MMU CELLS/CAPSULE PO SCH (08:13)
[2019-08-31] MEDS: pantoprazole 40 MG vial IV SCH (08:13)
[2019-08-31] MEDS: enoxaparin 40mg/0.4ml syringe SUBCUT SCH (08:13)
[2019-08-31] MEDS: insulin Lispro (HumaLOG) vial - multi-dose SQ SCH (08:32)
--- NOTE | 2019-08-31 09:50 | NUR ---
Patient kept telling me "I want to go home!" I had told the patient that she just transferred to our unit from ICU yesterday. Patient's at bedside. Patient insisted she wanted to go home. I called Dr. Olmos about patient request to speak to him about discharge and that patient might possibly go AMA. Dr. Olmos stated that he won't be able to see her not until before dinner time. I notified patient that Dr. Olmos will make rounds late afternoon, before dinner time. Patient still stating her intention to go home and decided to sign the AMA form. Charge nurse Brooklynn notified about this. Addendum: 08/31/19 at 1153 by Raj Ferreira RN I attempted to notify Dr. Olmos about patient's decision of AMA but I did not get the chance as he quickly told me on the phone "I am in the ER, I will call you back!"
--- NOTE | 2019-08-31 10:00 | NUR ---
Discontinued hennessy catheter, central line on right femoral groin area as well as peripheral IV catheter both left and right thumbs as patient is going AMA. Patient tolerated all the procedures done. Patient already signed the AMA form, at bedside.
--- NOTE | 2019-08-31 10:11 | NUR ---
Patient given extra gown, states her clothing was cut off on admit. Patient with socks, leaving AMA with to assist her.
--- NOTE | 2019-08-31 11:30 | NUR ---
Dr. Olmos called back, I notified him that this patient ended up leaving A
[2019-08-31] MEDS ORDERED: VANCOMYCIN LEVEL IV ONE ×2 (12:30)
[2019-09-02] MEDS ORDERED: methylnaltrexone br 12mg/0.6ml inj***SubQ only SQ SCH (08:00)
--- NOTE | 2019-09-02 17:38 | NUR ---
Patient called regarding failed attempt to get antibiotic medication from [facility]. Patient stated she was discharged yesterday and was told she her medications would be at [facility]. No information was found that patient was discharged home with new prescriptions. According to nursing notes patient went AMA yesterday. Let patient know there is no order discharge or prescriptions.
== END 2019-08-31 10:15 | disposition left against medical advice (07) | DRG 208 ==
LOC: ER 08:07 → ED HOLD 12:38 → CICU 2S 16:17 → SUR 3N 08-30 17:06
PROVIDERS: ADMIT Internal Medicine Critical Care Medicine; ATTEND Internal Medicine Critical Care Medicine
PROC: 5A1935Z Respiratory Ventilation, Less than 24 Consecutive Hours (ICD-10-PCS; principal; 2019-08-28)
PROC: 0BH17EZ Insertion of Endotracheal Airway into Trachea, Via Natural or Artificial Opening (ICD-10-PCS; 2019-08-28)
DX: J96.00 Acute respiratory failure, unspecified whether with hypoxia or hypercapnia (principal); G93.41 Metabolic encephalopathy; E11.9 Type 2 diabetes mellitus without complications; E66.9 Obesity, unspecified; Z68.36 Body mass index [BMI] 36.0-36.9, adult; F31.9 Bipolar disorder, unspecified; I10 Essential (primary) hypertension; F17.200 Nicotine dependence, unspecified, uncomplicated; F41.9 Anxiety disorder, unspecified; F15.10 Other stimulant abuse, uncomplicated; Z53.29 Procedure and treatment not carried out because of patient's decision for other reasons; G89.29 Other chronic pain; L40.9 Psoriasis, unspecified; Z90.49 Acquired absence of other specified parts of digestive tract; Z79.899 Other long term (current) drug therapy
CPT/HCPCS: 31500; 36415; 36600; 70450; 71045; 71250; 80053; 80305; 81003; 81025; 82271; 82803; 82948; 83036; 83605; 83735; 83880; 84100; 84145; 84484; 85018; 85025; 85610; 85730; 87040; 87070; 87077; 87081; 87088; 93005; 94002; 94003; 94760; 96365; 96375; 97116; 97162; 97530; 99291; C9113; G0378; J0692; J0696; J1650; J1815; J2270; J2310; J2704; J3010; J3370; J7030

== ENCOUNTER 2020-05-25 16:26 | Emergency (ER) | payer MEDICARE ==
[~2020-05-25] VITALS: Ht 175.3 cm; Wt 113.6 kg
[~2020-05-25 16:26] MED LIST changes: -ALBU8HFA PO; -ALPR-624 PO; -CYCL-1 PO; -HYDR-3686 PO; -IBUP-1985 PO; -METH750T3 PO; +NO HOME MEDS; -OXYC-658 PO
[2020-05-25 17:19] LABS: BASOPHILS # (AUTO) 0.2 X10'3 (0-0.2); BASOPHILS % (AUTO) 1.3 % (0-1); EOSINOPHILS # (AUTO) 0.2 X10'3 (0-0.9); EOSINOPHILS % (AUTO) 1.9 % (0-6); HEMATOCRIT 44.9 % (35.0-45.0); HEMOGLOBIN 14.9 g/dl (12.0-16.0); LYMPHOCYTES # (AUTO) 2.8 X10'3 (1.1-4.8); LYMPHOCYTES % (AUTO) 24.8 % (21-51); MEAN CORPUSCULAR HEMOGLOBIN 27.9 PG (27.0-31.0); MEAN CORPUSCULAR HGB CONC 33.2 g/dL (33.0-36.5); MONOCYTES % (AUTO) 8.6 % (2-12); NEUTROPHILS # (AUTO) 7.1 X10'3 (1.8-7.7); NEUTROPHILS % (AUTO) 63.4 % (42-75); PLATELET COUNT 254 X10'3 (140-440); RED BLOOD COUNT 5.35 X10'6 (4.20-5.60); RED CELL DISTRIBUTION WIDTH 14.3 % (11.5-14.5); WHITE BLOOD COUNT 11.2 X10'3 (4.5-11.0)
[2020-05-25 17:48] LABS: ALANINE AMINOTRANSFERASE 21 U/L (12-78); ALBUMIN 3.9 G/DL (3.4-5.0); ALKALINE PHOSPHATASE 118 IU/L (46-116); ANION GAP 10 (8-16); ASPARTATE AMINO TRANSFERASE 13 U/L (10-37); BILIRUBIN,TOTAL 0.8 MG/DL (0.1-1.0); BLOOD UREA NITROGEN 14 MG/DL (7-18); BUN/CREATININE RATIO 15.7 (6.6-38.0); CALCIUM 9.5 MG/DL (8.5-10.1); CHLORIDE 104 MMOL/L (99-107); CREATININE 0.89 MG/DL (0.40-0.90); GLUCOSE 173 MG/DL (70-104); POTASSIUM 3.9 MMOL/L (3.5-5.1); SODIUM 139 MMOL/L (135-145); TOTAL CARBON DIOXIDE 25.4 MMOL/L (24-32); TOTAL PROTEIN 7.7 G/DL (6.4-8.2); eGFR 65 ML/MIN
[2020-05-25 18:29] VITALS: BP 149/94
== END 2020-05-25 18:42 | disposition home or self-care (01) ==
LOC: ER 16:27
DX: R06.02 Shortness of breath (principal); I10 Essential (primary) hypertension; E11.9 Type 2 diabetes mellitus without complications; G89.29 Other chronic pain; F15.90 Other stimulant use, unspecified, uncomplicated; Z90.49 Acquired absence of other specified parts of digestive tract; Z98.890 Other specified postprocedural states; Z56.0 Unemployment, unspecified
CPT/HCPCS: 36415; 71045; 80053; 83880; 84484; 85025; 93005; 99285

== ENCOUNTER 2022-04-09 03:38 | Emergency (ER) | payer BC, MEDICARE | END 2022-04-09 04:51 | disposition left against medical advice (07) | LOC: ER 03:38 | DX: M79.605 Pain in left leg (principal); Z53.21 Procedure and treatment not carried out due to patient leaving prior to being seen by health care provider ==

== ENCOUNTER 2022-05-18 22:35 | Inpatient (IN) | payer BC ==
[~2022-05-18] VITALS: Ht 175.3 cm; Wt 108.6 kg
[2022-05-18 23:23] LABS: EOSINOPHILS # (AUTO) 0.2 X10'3 (0-0.9); HEMOGLOBIN 14.2 g/dl (12.0-16.0); RED CELL DISTRIBUTION WIDTH 14.8 % (11.5-14.5); WHITE BLOOD COUNT 10.2 X10'3 (4.5-11.0)
[2022-05-18 23:25] LABS: BASOPHILS # (AUTO) 0.1 X10'3 (0-0.2); BASOPHILS % (AUTO) 0.7 % (0-1); EOSINOPHILS % (AUTO) 2.1 % (0-6); HEMATOCRIT 42.9 % (35.0-45.0); LYMPHOCYTES # (AUTO) 2.3 X10'3 (1.1-4.8); LYMPHOCYTES % (AUTO) 22.6 % (21-51); MEAN CORPUSCULAR HEMOGLOBIN 26.3 PG (27.0-31.0); MEAN CORPUSCULAR HGB CONC 33.2 g/dL (33.0-36.5); MEAN CORPUSCULAR VOLUME 79.1 FL (78-98); MEAN PLATELET VOLUME 7.4 FL (7.4-10.4); MONOCYTES % (AUTO) 10.1 % (2-12); NEUTROPHILS # (AUTO) 6.6 X10'3 (1.8-7.7); NEUTROPHILS % (AUTO) 64.5 % (42-75); PLATELET COUNT 251 X10'3 (140-440); RED BLOOD COUNT 5.42 X10'6 (4.20-5.60)
[2022-05-18 23:43] LABS: ALANINE AMINOTRANSFERASE 25 U/L (12-78); ALBUMIN 3.5 G/DL (3.4-5.0); ALBUMIN/GLOBULIN RATIO 0.9 (1.1-1.5); ALKALINE PHOSPHATASE 97 IU/L (46-116); ANION GAP 4 (8-16); ASPARTATE AMINO TRANSFERASE 23 U/L (10-37); BILIRUBIN,TOTAL 0.6 MG/DL (0.1-1.0); BLOOD UREA NITROGEN 12 MG/DL (7-18); BUN/CREATININE RATIO 16.7 (6.6-38.0); CALCIUM 8.9 MG/DL (8.5-10.1); CHLORIDE 104 MMOL/L (99-107); CREATININE 0.72 MG/DL (0.40-0.90); GLUCOSE 163 MG/DL (70-104); SODIUM 138 MMOL/L (135-145); TOTAL CARBON DIOXIDE 30.3 MMOL/L (24-32); TOTAL PROTEIN 7.4 G/DL (6.4-8.2); eGFR 82 ML/MIN
[2022-05-19] VITALS (14 sets, daily range): BP systolic 106–157; BP diastolic 44–74
[2022-05-19] MEDS ORDERED: aspirin 81mg tab.chew PO ONE (00:40)
[2022-05-19] MEDS ORDERED: aspirin 325mg tablet PO ONE (01:30)
[2022-05-19] MEDS ORDERED: heparin 10,000 units/1 ML INJ IV ONE ×2 (01:30→01:35)
[2022-05-19] MEDS ORDERED: heparin 25,000 UNIT/250ml bag 250 ML IV SCH ×2 (01:30→04:40)
[2022-05-19] MEDS ORDERED: heparin 10,000 units/1 ML INJ IV PRN ×2 (01:30→20:25)
[2022-05-19] MEDS ORDERED: mag hydrox/Alum hydrox/simeth 30ml oral suspension PO PRN (02:25)
[2022-05-19] MEDS ORDERED: ondansetron/PF 4mg/2ml inj IV PRN (02:25)
[2022-05-19] MEDS ORDERED: magnesium Cl slow-release 64mg tablet PO PRN (02:25)
[2022-05-19] MEDS ORDERED: normal saline 1000ml 1,000 ML IV SCH (02:25)
[2022-05-19] MEDS ORDERED: acetaminophen 325mg tablet PO PRN (02:25)
[2022-05-19] MEDS ORDERED: magnesium 4gm in 100ml NS 100 ML IV PRN (02:25)
[2022-05-19] MEDS ORDERED: magnesium hydroxide 30ml (MOM) UD suspension PO PRN (02:25)
[2022-05-19] MEDS ORDERED: PERFLUTREN PROTEIN-A MICROSPHR (Optison) 0.22 MG/ML 3ML VIAL IV ONE (02:25)
[2022-05-19] MEDS ORDERED: POTASSIUM BICARB 20meq eff tab 20 MEQ TABLET.EFF PO PRN ×2 (02:25)
[2022-05-19] MEDS ORDERED: potassium CL 10mEq/100ml bag 100 ML IV PRN (02:25)
[2022-05-19] MEDS ORDERED: magnesium 2GM in 50ml NS 50 ML IV PRN (02:25)
[2022-05-19] MEDS ORDERED: MESSAGE TO PHARMACY PO ONE (02:30)
[2022-05-19] MEDS ORDERED: insulin Lispro (HumaLOG) vial - multi-dose SQ SCH (02:30)
[2022-05-19] MEDS ORDERED: DEXTROSE 15 GM of carb/4 tabs (each vial/BOTTLE has 4 tablets) PO PRN ×2 (02:30)
[2022-05-19] MEDS ORDERED: dextrose 50%-water 50ml dispensing syringe IV PRN ×2 (02:30)
[2022-05-19] MEDS ORDERED: glucagon, human recombinant 1mg kit SUBCUT PRN (02:30)
[2022-05-19] MEDS ORDERED: buprenorphine/naloxone 8mg/2mg SL tablet SL PRN (02:30)
[2022-05-19] MEDS ORDERED: PERFLUTREN PROTEIN-A MICROSPHR (Optison) 0.22 MG/ML 3ML VIAL IV PRN (03:10)
[2022-05-19 04:23] LABS: URINE AMPHETAMINE SCREEN POSITIVE (Neg); URINE BARBITUATE SCREEN NEGATIVE (Neg); URINE BENZODIAZEPINES SCREEN NEGATIVE (Neg); URINE CANNABINOID SCREEN NEGATIVE (Neg); URINE COCAINE SCREEN NEGATIVE (Neg); URINE METHADONE SCREEN NEGATIVE (Neg); URINE OPIATE SCREEN NEGATIVE (Neg); URINE PHENCYCLIDINE SCREEN NEGATIVE (Neg)
--- NOTE | 2022-05-19 05:49 | NUR ---
Pt arrived via w/c from ER, and pivots to bed. IV heparin infusion gtt at 1000u/hr. Order for Cardiac PTT at 1030. Addendum: 05/19/22 at 0551 by Radha Suárez RN Amended: Links added.
--- NOTE | 2022-05-19 06:31 | NUR ---
Problems reprioritized. Patient report given, questions answered & plan of care reviewed with Yordy Cheney. Addendum: 05/19/22 at 0632 by Radha Suárez RN Amended: Links added.
--- NOTE | 2022-05-19 06:36 | NUR ---
Patient in room PCU 3013. I have received report from Radha AGUDELO and had the opportunity to ask questions and assume patient care.
[2022-05-19] MEDS: K and/or MAG REPLACEMENT MC SCH ×2 (08:00→19:56)
[2022-05-19] MEDS ORDERED: aspirin 325mg tablet, delayed-release (Ecotrin) PO SCH (08:00)
[2022-05-19 08:25] LABS: BASOPHILS % (AUTO) 0.5 % (0-1); EOSINOPHILS # (AUTO) 0.2 X10'3 (0-0.9); EOSINOPHILS % (AUTO) 2.2 % (0-6); HEMATOCRIT 41.8 % (35.0-45.0); HEMOGLOBIN 13.6 g/dl (12.0-16.0); LYMPHOCYTES % (AUTO) 23.6 % (21-51); MEAN CORPUSCULAR HGB CONC 32.6 g/dL (33.0-36.5); MEAN CORPUSCULAR VOLUME 79.5 FL (78-98); MONOCYTES # (AUTO) 0.7 X10'3 (0-0.9); MONOCYTES % (AUTO) 8.4 % (2-12); NEUTROPHILS # (AUTO) 5.7 X10'3 (1.8-7.7); NEUTROPHILS % (AUTO) 65.3 % (42-75); PLATELET COUNT 236 X10'3 (140-440); RED BLOOD COUNT 5.26 X10'6 (4.20-5.60); RED CELL DISTRIBUTION WIDTH 14.6 % (11.5-14.5); WHITE BLOOD COUNT 8.7 X10'3 (4.5-11.0)
[2022-05-19 08:32] LABS: APTT 29 SECONDS (22-32)
[2022-05-19 08:44] LABS: MAGNESIUM 1.9 MG/DL (1.5-2.4)
[2022-05-19] MEDS: carVEDilol 3.125mg tablet PO SCH ×2 (09:52→19:55)
[2022-05-19] MEDS: docusate sod 100mg capsule PO SCH ×2 (09:53→20:01)
[2022-05-19] MEDS: buprenorphine/naloxone 8MG-2MG SUBlingual film SL PRN ×2 (09:53→20:11)
[2022-05-19] MEDS ORDERED: metoprolol tartrate 1mg/ml inj IV PRN (09:55)
[2022-05-19] MEDS ORDERED: aminophylline 500mg/20ml vial IV PRN (09:55)
[2022-05-19] MEDS ORDERED: regadenoson 0.4mg/5ml syringe IV PRN (09:55)
[2022-05-19] MEDS ORDERED: nitroGLYCERIN 0.4mg SUBLingual tab SL PRN (09:55)
--- NOTE | 2022-05-19 17:29 | NUR ---
PAGER ID: [phone] MESSAGE: Yordy MAJOR [id number] Leslie Jacome patient had a negative stress test could she have a diet order? Thanks Yordy.
--- NOTE | 2022-05-19 18:27 | NUR ---
Problems reprioritized. Patient report given, questions answered & plan of care reviewed with Radha AGUDELO.
[2022-05-19] MEDS ORDERED: HEPARIN SOD,PORK IN 0.45% NACL 250 ML IV SCH (23:05)
--- NOTE | 2022-05-20 02:00 | NUR ---
Pt received a phone call as her is at home on hospice and isn't doing well. Pt wishes to leave. made aware and counseling against this decision was reiterated. Pt understands her health is at risk, and will return to the ER. IV was removed with small pressure dressing placed and all belongings sent with pt. Pt went down in W/C and her ride was waiting for her. Addendum: 05/20/22 at 0215 by Radha Suárez RN Amended: Links added.
== END 2022-05-20 02:15 | disposition left against medical advice (07) | DRG 282 ==
LOC: ER 22:35 → ED HOLD 05-19 02:25 → PCU 3S 05-19 05:04
PROVIDERS: ADMIT Internal Medicine; ATTEND Internal Medicine
PROC: 4A02XM4 Measurement of Cardiac Total Activity, External Approach (ICD-10-PCS; principal; 2022-05-19)
PROC: 3E033HZ Introduction of Radioactive Substance into Peripheral Vein, Percutaneous Approach (ICD-10-PCS; 2022-05-19)
DX: I21.4 Non-ST elevation (NSTEMI) myocardial infarction (principal); E11.9 Type 2 diabetes mellitus without complications; E78.5 Hyperlipidemia, unspecified; F31.9 Bipolar disorder, unspecified; Z53.29 Procedure and treatment not carried out because of patient's decision for other reasons; I10 Essential (primary) hypertension; J44.9 Chronic obstructive pulmonary disease, unspecified; F17.200 Nicotine dependence, unspecified, uncomplicated; F41.9 Anxiety disorder, unspecified; G89.29 Other chronic pain; Z56.0 Unemployment, unspecified; Z87.440 Personal history of urinary (tract) infections; Z90.49 Acquired absence of other specified parts of digestive tract
CPT/HCPCS: 36415; 71045; 78452; 80053; 80305; 82948; 83036; 83735; 83880; 84132; 84484; 85025; 85610; 85730; 87081; 93005; 93017; 93306; 99285; A6449; A9500; G0378; J1644; J1815; J2785

== ENCOUNTER 2023-11-11 05:38 | Emergency (ER) | payer BC ==
[~2023-11-11] VITALS: Ht 175.3 cm; Wt 104.5 kg
[2023-11-11 05:44] VITALS: BP 101/59; PULSE 68; RESP 18; TEMP 98.3; O2SAT 100
[2023-11-11] MEDS ORDERED: methylPREDNISolone sod succ 125mg/2ml vial IV ONE (06:30)
[2023-11-11] MEDS ORDERED: aspirin 81mg tab.chew PO ONE (06:30)
[2023-11-11] MEDS ORDERED: ipratropium/albuterol 3ml nebule NEB ONE (06:30)
== END 2023-11-11 06:32 | disposition left against medical advice (07) ==
LOC: ER 05:40
DX: R07.89 Other chest pain (principal); R06.2 Wheezing; I10 Essential (primary) hypertension; E11.9 Type 2 diabetes mellitus without complications; G89.29 Other chronic pain; Z87.81 Personal history of (healed) traumatic fracture; Z90.49 Acquired absence of other specified parts of digestive tract; Z56.0 Unemployment, unspecified
CPT/HCPCS: 71045; 93005; 99283